=== PATIENT | male | born 1995 | race Caucasian/White ===

== ENCOUNTER 2020-05-19 22:10 | Emergency (ER) | payer MEDICAID, OTHER ==
[~2020-05-19] VITALS: Ht 177.8 cm; Wt 100.6 kg
--- NOTE | 2020-05-19 22:35 | NUR ---
ASSESSMENT MADE. CHART UP FOR MD TO SEE.
[2020-05-19 23:24] LABS: BASOPHILS # (AUTO) 0.02 x10^3/uL (0-0.1); BASOPHILS % (AUTO) 0 % (0-1); EOSINOPHILS # (AUTO) 0.17 x10^3/uL (0-0.4); EOSINOPHILS % (AUTO) 4 % (1-7); LYMPHOCYTES # (AUTO) 1.78 x10^3/uL (1-3.4); LYMPHOCYTES % (AUTO) 39 % (22-44); MD NO; MEAN CORPUSCULAR HEMOGLOBIN 30.3 pg (27.5-34.5); MEAN CORPUSCULAR HGB CONC 33.6 g/dL (33.2-36.2); MEAN PLATELET VOLUME 7.9 fL (7.4-10.4); MONOCYTES # (AUTO) 0.28 x10^3/uL (0.2-0.8); MONOCYTES % (AUTO) 6 % (2-9); NEUTROPHILS # (AUTO) 2.26 x10^3/uL (1.8-6.8); NEUTROPHILS % (AUTO) 50 % (42-75); PLATELET COUNT 217 x10^3/uL (130-400); RED BLOOD COUNT 5.21 x10^6/uL (4.38-5.82)
[2020-05-19 23:34] LABS: ALANINE AMINOTRANSFERASE 39 U/L (12-78); ALBUMIN 3.8 g/dL (3.4-5.0); ANION GAP 6 mmol/L (5-15); CALCIUM 8.6 mg/dL (8.5-10.1); CHLORIDE 108 mmol/L (98-107); CREATININE 0.94 mg/dL (0.7-1.3)
[2020-05-19 23:39] LABS: ALKALINE PHOSPHATASE 63 U/L (45-117); BILIRUBIN,TOTAL 0.4 mg/dL (0.2-1.0); T4 (THYROXINE) 9.4 mcg/dL (4.5-12.1); TROPONIN I < 0.015 ng/mL (0.000-0.045)
--- NOTE | 2020-05-19 23:41 | NUR ---
PT RESTING AT THIS TIME AND DENIES CURRENT NEEDS. NSR ON [employer].
[2020-05-20 00:10] VITALS: BP 122/58
== END 2020-05-20 00:11 | disposition home or self-care (01) ==
LOC: ED 22:58
DX: R00.2 Palpitations (principal); R00.0 Tachycardia, unspecified; R25.1 Tremor, unspecified; H57.11 Ocular pain, right eye
CPT/HCPCS: 36415; 80053; 83735; 84436; 84443; 84484; 85025; 93005; 99284

== ENCOUNTER 2020-08-02 13:18 | Day surgery (SDC) | payer OTHER ==
[~2020-08-02] VITALS: Ht 177.8 cm; Wt 98.6 kg
[2020-08-02] MEDS ORDERED: LIDOCAINE-MPF 1%, 5ML ONE (13:43)
[2020-08-02] MEDS ORDERED: ONDANSETRON 2MG/ML, 2ML ONE ×2 (13:52→19:41)
[2020-08-02] MEDS ORDERED: MORPHINE SULFATE 4 MG/ML, 1ML ONE ×2 (13:52→15:17)
[2020-08-02] MEDS ORDERED: CEFAZOLIN PMX 1GM/50ML 50 ML ONE (13:53)
[2020-08-02] MEDS ORDERED: DIPH,PERTUSS(ACELL),TET VAC/PF 0.5 ML IM-VACC ONE ×2 (13:53→14:00)
[2020-08-02] MEDS: MORPHINE SULFATE 4 MG/ML, 1ML IVPush PRN ×2 (13:57→15:19)
[2020-08-02] MEDS ORDERED: LIDOCAINE-MPF 1%, 5ML INFIL ONE (14:00)
[2020-08-02] MEDS ORDERED: SODIUM CHLORIDE FLUSH 10ML SYR IVF ONE (14:00)
[2020-08-02] MEDS ORDERED: CEFAZOLIN PMX 1GM/50ML 50 ML IV ONE (14:00)
[2020-08-02] MEDS ORDERED: ONDANSETRON 2MG/ML, 2ML IVPush ONE (14:00)
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
--- NOTE | 2020-08-02 14:08 | NUR ---
PIV EST ON L FOREARM WITH NO COMPLICATIONS. PT MEDICATED PER EMAR. ABX INFUSING. NO BC NEEDED PER EDMD. PT TOLERATED WELL.
[2020-08-02] MEDS ORDERED: LIDOCAINE-MPF 1%, 2ML ONE (14:51)
[2020-08-02] MEDS ORDERED: NEOSPORIN OINT. PKT 1 PACKET ONE (14:58)
--- NOTE | 2020-08-02 15:05 | NUR ---
EMT AT BEDSIDE FOR IRRIGATION.
[2020-08-02] MEDS ORDERED: BUPIVACAINE 0.25% ONE (15:09)
--- NOTE | 2020-08-02 15:22 | NUR ---
PT MEDICATED PER EMAR FOR PAIN. PT TOLERATED WELL.
[2020-08-02] MEDS ORDERED: BUPIVACAINE/PF-EPI 0.25% 1:200K SQ ONE (15:30)
--- NOTE | 2020-08-02 15:44 | NUR ---
dressing applied by emt at this time. pt tolerated well.
--- NOTE | 2020-08-02 16:39 | NUR ---
pt sleeping in gurney. resps even and unlabored. bp/spo2 monitors in place. call light within reach. family member at bedside at this time.
--- NOTE | 2020-08-02 17:16 | NUR ---
pt resting in [facility]. pt's aox4. resps even and unlabored. bp/spo2 monitors in place. call light within reach. pt denies any needs or concerns at this time.
[2020-08-02] MEDS ORDERED: BUPIVACAINE/PF 0.25% ONE (17:22)
[2020-08-02 18:04] VITALS: BP 121/79
--- NOTE | 2020-08-02 18:05 | NUR ---
pt resting in [facility]. pt's aox4. resps even and unlabored. bp/spo2 monitors in place. call light within reach. pt denies any needs or concerns at this time.
--- NOTE | 2020-08-02 18:10 | NUR ---
report given to bolivar canada at or. surgery plan at 6:30 pm today.
[2020-08-02] MEDS ORDERED: HYDROmorphone 1 MG/ML, 1ML INJ IVPush PRN (18:30)
[2020-08-02] MEDS ORDERED: ONDANSETRON 2MG/ML, 2ML IVPush PRN (18:30)
[2020-08-02] MEDS ORDERED: LORazepam 2 MG/ML, 1ML IVPush PRN (18:30)
[2020-08-02] MEDS ORDERED: PROMETHAZINE 25 MG SUPP PR PRN (18:30)
[2020-08-02] MEDS ORDERED: PROMETHAZINE 25 MG/ML, 1ML IVPush PRN (18:30)
[2020-08-02] MEDS ORDERED: OXYcodone 5 MG/5 ML ORAL.SOL UDC PO PRN (18:30)
[2020-08-02] MEDS ORDERED: FENTANYL PF 100 MCG/2ML IV PRN (18:30)
[2020-08-02] MEDS ORDERED: ACETAMINOPHEN 325 MG TABLET PO PRN (18:30)
[2020-08-02] MEDS ORDERED: MEPERIDINE/PF 25MG/0.5ML IVPush PRN (18:30)
[2020-08-02] MEDS ORDERED: FENTANYL PF 100 MCG/2ML ONE ×3 (18:43→20:00)
[2020-08-02] MEDS ORDERED: MIDAZOLAM 1 MG/ML, 2ML ONE (18:43)
[2020-08-02] MEDS ORDERED: BUPIVACAINE 0.25% INJ ONE (19:10)
[2020-08-02] MEDS ORDERED: ROCURONIUM 10MG/ML,5ML ONE (19:41)
[2020-08-02] MEDS ORDERED: GLYCOPYRROLATE 0.2MG/1ML, 5ML ONE (19:41)
[2020-08-02] MEDS ORDERED: NEOSTIGMINE 1 MG/ML, 10ML ONE (19:41)
[2020-08-02] MEDS ORDERED: DEXAMETHASONE 4 MG/ML, 1ML ONE (19:41)
[2020-08-02] MEDS ORDERED: CEFAZOLIN 1,000 MG ONE (19:41)
[2020-08-02] MEDS ORDERED: PROPOFOL 10 MG/ML, 20ML ONE (19:41)
[2020-08-02] MEDS ORDERED: SUCCINYLCHOLINE 20 MG/ML, 10ML ONE (19:41)
[2020-08-02] MEDS ORDERED: OXYcodone 5 MG/5 ML ORAL.SOL UDC ONE (20:00)
[2020-08-02] MEDS ORDERED: HYDR-3652 PO (20:47)
[2020-08-02] MEDS ORDERED: AMOX1TAB61 PO (20:50)
== END 2020-08-02 21:55 | disposition home or self-care (01) ==
LOC: ED 14:14 → UNDOADMIN 18:32 → EDIP 18:32 → ED 18:57 → 4NE 20:44 → EDIP 20:44 → ED 21:55 → UNDODISIN 22:15
PROVIDERS: ATTEND Emergency Medicine
DX: S62.614A Displaced fracture of proximal phalanx of right ring finger, initial encounter for closed fracture (principal); Z23 Encounter for immunization; Z20.828 Contact with and (suspected) exposure to other viral communicable diseases; S61.212A Laceration without foreign body of right middle finger without damage to nail, initial encounter; F17.200 Nicotine dependence, unspecified, uncomplicated; V86.69XA Passenger of other special all-terrain or other off-road motor vehicle injured in nontraffic accident, initial encounter; Y93.I9 Activity, other involving external motion; Y92.89 Other specified places as the place of occurrence of the external cause; Y99.8 Other external cause status
CPT/HCPCS: 11012; 11042; 26727; 73130; 73140; 87635; 90471; 90715; 96365; 96375; 96376; 99285; C1713; J0330; J0690; J1100; J2250; J2270; J2405; J2704; J2710; J3010; J3490; 12042; 76000; G0378